=== PATIENT | female | born 1995 | race Caucasian/White ===

== ENCOUNTER → 2018-03-08 15:38 | Outpatient (CLI) | payer OTHER, SELFPAY ==
--- NOTE | 2018-03-08 15:38 | DT_ITS ---
This patient was seen during an EMR downtime March 08, 2018 - March 15, 2018. This patient may have a combination of paper and electronic documentation or all paper documentation. All documentation is viewable within the e-chart portion of [facility] for each patient visit.
== END ==
PROVIDERS: Family Provider Pediatrics; PCP Pediatrics; Visit Provider Otolaryngology
DX: J02.9 Acute pharyngitis, unspecified (principal)
CPT/HCPCS: 87070